=== PATIENT | male | born 1970 | race Caucasian/White ===

== ENCOUNTER 2016-06-22 21:51 | Emergency (ER) | payer SELFPAY ==
[~2016-06-22] VITALS: Ht 152.4 cm; Wt 72.0 kg
[2016-06-22 21:52] VITALS: BP 147/79; PULSE 70; RESP 16; TEMP 97.9; O2SAT 99
[2016-06-22] MEDS ORDERED: ceFAZolin 2 GM PREMIX 50 ML IV ONE (22:30)
[2016-06-22] MEDS ORDERED: TETANUS/DIPHTHERIA TOXOID ADULT 0.5 ML VIAL IM ONE (22:30)
--- NOTE | 2016-06-22 22:32 | PD ---
HPI Chief Complaint: Foreign Body Time Seen by Provider: 22:24 Travel History International Travel<30 days: No Contact w/Intl Traveler<30days: No Traveled to known affect area: No History of Present Illness HPI 45-year-old male presents for evaluation of foreign body to the right hand. He reports that 4 days ago he was attempting to catch a red Fish when the spine of the fish broke off in his right hand. He now has a foreign body sensation in his right hand. He attempted to remove the object himself but was unsuccessful. Last tetanus vaccination unknown. Denies numbness or tingling. No other complaints. PFSH Social History Alcohol Use: No Tobacco Use: No Allergies-Medications (Allergen,Severity, Reaction): Coded Allergies: No Known Allergies (Unverified , 06/22/16) Reported Meds & Prescriptions Reported Meds & Active Scripts Active Keflex (Cephalexin) 500 Mg Cap 500 Mg PO Q6H 7 Days Review of Systems Musculoskeletal: No: Limited ROM Skin: Positive Other (foreign body right hand) Neurologic: No: Paresthesia Physical Exam Narrative GENERAL: Well-developed well-nourished male in no acute distress SKIN: Warm and dry. Small puncture wound noted to the medial volar aspect of the right hand. I am unable to palpate any foreign body. Extremities: Skin as noted above. Full range of motion of the fingers. Sensation preserved. Data Data Last Documented VS Vital Signs Date Time Temp Pulse Resp B/P Pulse Ox O2 Delivery O2 Flow Rate FiO2 06/22/16 21:52 97.9 70 16 147/79 99 Room Air Orders Hand, Complete ([id number]) (06/22/16 ) Tetanus/Diphtheria Tox Adult (Tetanus/Di (06/22/16 22:30) Iv Access Insert/Monitor (06/22/16 22:30) Cefazolin 2 Gm Premix (Ancef 2 Gm Premix (06/22/16 22:30) Mandatory Outpatient Referral (06/22/16 23:20) [facility] Medical Decision Making Medical Screen Exam Complete: Yes Emergency Medical Condition: Yes Medical Record Reviewed: Yes Interpretation(s) CONCLUSION: Foreign body in the soft tissues of the ulnar aspect of the proximal hand as above and radiographic appearance would be compatible with a fish yari. No fracture or other bony abnormality. Differential Diagnosis Retained foreign body, puncture wound, abscess Narrative Course 45-year-old male presents for evaluation of foreign body to the right hand after attempting to grab a barbed fish 4 days ago. On examination there is a puncture wound on the ulnar aspect of the palmar right hand, no palpable foreign bodies unfortunately. An x-ray does reveal a 1 mm in diameter, 10 mL along faint radiopaque foreign body in the soft tissue near the proximal shafts of the fourth and fifth metacarpals. Given the location and the fragile nature of this foreign body this patient would benefit from having follow-up with hand surgery to discuss foreign body removal. Fortunately examination reveals no evidence of infection. The patient was given IV Ancef here and tetanus vaccination. A mandatory outpatient referral has been placed. The patient is stable for discharge, prescription for Keflex given. Discussed signs and symptoms of infection that would warrant return to the emergency room. Diagnosis Primary Impression: Foreign body of right hand Qualified Code: S60.551A - Foreign body of right hand, initial encounter Referrals: Hand Surgeon Additional Instructions: Take antibiotics as prescribed. As discussed, our casework supervisor will call you in the next several days to help facilitate outpatient follow-up with a hand specialist. Return for any emergent medical conditions. Med/Other Pt SpecificInfo: Prescription(s) given Scripts Cephalexin (Keflex)500 Mg [id number] Mg PO Q6H 7 Days Ref 0 Prov:Eulalio Mittal MD 06/22/16 Disposition: 01 DISCHARGE HOME Condition: Stable Jani Fregoso Jun 22, 2016 22:32
--- NOTE | 2016-06-22 23:00 | RADRPT ---
EXAM DATE/TIME: 06/22/2016 22:49 [facility] COMPARISON: No previous studies available for comparison. INDICATIONS : Right hand pain, possible foreign body, fish yari. MEDICAL HISTORY : None. SURGICAL HISTORY : None. ENCOUNTER: Initial ACUITY: 4 - 6 days PAIN SCORE: 3/10 LOCATION: Right hand. FINDINGS: 1 mm diameter, and 10 mm long faintly radiopaque foreign body is seen in the soft tissues near the pr oximal shafts of the fourth and fifth metacarpals. I believe it is in the palmar soft tissues. There is no fracture. CONCLUSION: Foreign body in the soft tissues of the ulnar aspect of the proximal hand as above and radiographic a ppearance would be compatible with a fish yari. No fracture or other bony abnormality. Peter Griffin MD on June 22, 2016 at 22:56 Board Certified Radiologist. This report was verified electronically.
[2016-06-22] MEDS ORDERED: CEPH-460 PO (23:20)
== END 2016-06-23 00:13 | disposition home or self-care (01) ==
LOC: NEPB 21:51
DX: S61.441A Puncture wound with foreign body of right hand, initial encounter (principal); Z23 Encounter for immunization; W45.8XXA Other foreign body or object entering through skin, initial encounter; Y93.89 Activity, other specified
CPT/HCPCS: 73130; 90471; 90714; 96365; 99283; J0690